=== PATIENT | female | born 1940 | race Caucasian/White ===

== ENCOUNTER → 2018-08-01 15:08 | Outpatient (CLI) | payer MEDICARE, OTHER, SELFPAY ==
--- NOTE | 2018-08-01 | DI.MG.S_ITS ---
BILATERAL DIGITAL SCREENING MAMMOGRAM 3D/2D WITH CAD WITH AUGMENTATION: 08/01/2018 CLINICAL: Routine screening. Family history of breast cancer. Comparison is made to exams dated: 04/16/2016 mammogram, 03/14/2015 mammogram, and 11/15/2013 mammogram - [facility]. There are scattered fibroglandular elements in both breasts. Current study was also evaluated with a Computer Aided Detection (CAD) system. Bilateral breast implants are stable. There are benign vascular calcifications in the left breast. Right upper chest/breast cardiac pacemaker device obscures underlying anatomy. No significant masses, calcifications, or other findings are seen in either breast. There has been no significant interval change. IMPRESSION: There is no mammographic evidence of malignancy. A 1 year screening mammogram is recommended. This exam was interpreted at Station ID: [id number]. NOTE: For mammograms, a report in lay terms will be sent to the patient. Approximately 15% of breast malignancies will not be visualized mammographically. In the management of a palpable breast mass, a negative mammogram must not discourage biopsy of a clinically suspicious lesion. Electronically Signed By: Jesse Watkins M.D. ecl/:08/01/2018 20:03:37 letter sent: Normal Exam ACR BI-RADS Category 2: Benign Finding(s) 3342F
== END ==
PROVIDERS: PCP Family Medicine; Visit Provider Family Medicine
DX: Z12.31 Encounter for screening mammogram for malignant neoplasm of breast (principal); Z80.3 Family history of malignant neoplasm of breast
CPT/HCPCS: 77063; 77067

== ENCOUNTER → 2019-07-07 11:38 | Outpatient (CLI) | payer MEDICARE, OTHER, SELFPAY ==
[2019-07-07 12:21] LABS: Add Manual Diff / Slide Review NO; Basophils Absolute Auto 0 /uL (0-100); Basophils Percent Auto 0.7 % (0-2); Eosinophils Absolute Auto 200 /uL (0-450); Hematocrit 43.9 % (36-46); Hemoglobin 14.7 g/dL (12.0-16.0); Lymphocytes Absolute Auto 1200 /uL (1100-4500); Lymphocytes Percent Auto 21.6 % (25-40); Mean Corpuscular HGB Conc 33.6 % (30-36); Mean Corpuscular Hemoglobin 31.6 PG (26-34); Mean Corpuscular Volume 94.1 fL (80-100); Monocytes Absolute Auto 600 /uL (0-900); Neutrophils Absolute Auto 3500 /uL (1500-7000); Neutrophils Percent Auto 63.7 % (50-75); Platelet Count 252 X10^3/uL (150-400); Red Blood Cell Count 4.66 X10^6/uL (4.0-5.2); Red Cell Distribution Width 14.9 % (11.6-14.8); White Blood Cell Count 5.6 X10^3/uL (4.5-11.0)
[2019-07-07 12:44] LABS: Alanine Aminotransferase 21 IU/L (<35); Albumin 4.4 g/dL (3.5-5.0); Albumin Globulin Ratio 1.3 (1.0-2.8); Alkaline Phosphatase 119 U/L (38-126); Aspartate Aminotransferase 32 IU/L (14-36); BUN Creatinine Ratio 26.7 (6-22); Bilirubin Total 0.8 mg/dL (0.2-1.3); Blood Urea Nitrogen 32 mg/dL (7-17); Calcium 9.6 mg/dL (8.4-10.2); Carbon Dioxide 28 mmol/L (22-32); Chloride 102 mmol/L (98-107); Cholesterol 167 mg/dL (140-199); Estimated Glomerular Filt Rate 43.4 mL/min (>60); Globulin 3.4 g/dL (1.7-4.1); Glucose 83 mg/dL (80-110); HDL Cholesterol 56 mg/dL (40-60); HEMOLYSIS < 15 (0-50); LDL Cholesterol Calculated 92 mg/dL (<100); Potassium 4.8 mmol/L (3.4-5.1); Sodium 140 mmol/L (137-145); Total Protein 7.8 g/dL (6.3-8.2); Triglycerides 97 mg/dL (35-150)
[2019-07-07 13:08] LABS: TSH w/ Reflex to FT4 2.77 uIU/mL (0.47-4.68)
== END ==
PROVIDERS: PCP Family Medicine; Visit Provider Physician Assistant Medical
DX: E78.00 Pure hypercholesterolemia, unspecified (principal); I48.0 Paroxysmal atrial fibrillation
CPT/HCPCS: 36415; 80053; 80061; 84443; 85025

== ENCOUNTER → 2019-10-23 09:06 | Outpatient (CLI) | payer MEDICARE, OTHER, SELFPAY ==
--- NOTE | 2019-10-23 | DI.MG.S_ITS ---
BILATERAL DIGITAL SCREENING MAMMOGRAM 3D/2D WITH CAD WITH AUGMENTATION: 10/23/2019 CLINICAL: Patient presents for routine screening. S/P bilateral augmentation. Family history of breast cancer. Comparison is made to exams dated: 08/01/2018 mammogram, 04/16/2016 mammogram, and 03/14/2015 mammogram - [facility]. There are scattered fibroglandular elements in both breasts. Current study was also evaluated with a Computer Aided Detection (CAD) system. Bilateral breast implants are stable. There are benign vascular calcifications in the left breast. No significant masses, calcifications, or other findings are seen in either breast. There has been no significant interval change. IMPRESSION: There is no mammographic evidence of malignancy. A 1 year screening mammogram is recommended. This exam was interpreted at Station ID: [id number]. NOTE: For mammograms, a report in lay terms will be sent to the patient. Approximately 15% of breast malignancies will not be visualized mammographically. In the management of a palpable breast mass, a negative mammogram must not discourage biopsy of a clinically suspicious lesion. Electronically Signed By: Ana damico/wanda:10/23/2019 10:13:02 letter sent: Normal Exam ACR BI-RADS Category 2: Benign Finding(s) 3342F
== END ==
PROVIDERS: PCP Family Medicine; Referring Provider Family Medicine; Visit Provider Family Medicine
DX: Z12.31 Encounter for screening mammogram for malignant neoplasm of breast (principal); Z80.3 Family history of malignant neoplasm of breast; Z98.82 Breast implant status
CPT/HCPCS: 77063; 77067

== ENCOUNTER → 2020-04-02 07:41 | Outpatient (CLI) | payer MEDICARE, OTHER, SELFPAY ==
--- NOTE | 2020-04-02 | DI.US.S_ITS ---
PROCEDURE: US RENAL COMPLETE INDICATIONS: BENIGN LIPOMATOUS NEOPLASM TECHNIQUE: Real-time scanning was performed of the kidneys and bladder, with image documentation. COMPARISON: [facility], CT, CT ABDOMEN PELVIS WITH CONTRAST, 07/13/2019, 10:59. FINDINGS: Review of the prior CT scan 07/13/19 shows a predominantly fatty mass in apposition to and likely arising from the inferior lateral cortex of the left kidney. At the maximal axial caliber this structure measures up to 2.5 x 2.4 cm and at the maximal craniocaudad length it is 4.2 cm. At its superior border there appears to be a soft tissue component that is small and not associated with vascularity that is perceptible including pseudoaneurysm formation. Rather, non-specific mild increased radiodensity at its confluence with the renal capsular border is noted. Kidneys: Kidneys are normal in size. Right kidney measures 9.0 cm long; left kidney measures 9.7 cm long. Right renal cortical thickness is 1.1, cm; left renal cortical thickness is 1.2 cm. Renal cortical echotexture is normal. No hydronephrosis or nephrolithiasis. No suspicious malignant-appearing solid mass lesions are found. Note is made of a 6 x 7 x 10 mm hyperechoic structure within the lateral inferior left renal cortex, possibly a small angiomyolipoma. A discrete mass lesion or pseudoaneurysm is not found related to the left kidney cortical border at the inferior half of the renal cortical region, and a structure that is clearly identifiable separate from the adjacent retroperitoneal fat in this area is not seen. However, there is a curvilinear echogenic finding of retroperitoneal fat that is slightly more homogeneous in its sonographic appearance, which would not be appreciated without benefit of reference to the CT scan from June of 2019. Miscellaneous: No free pelvic fluid. 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 The structure seen by CT scanning is predominantly fatty, with only a small degree of marginal soft tissue component and no suspicion of pseudoaneurysm within. This structure may represent an extra adrenal myelolipoma, predominately fatty. It also could represent an exophytic angiomyolipoma but with very low vascularity. The likelihood of this representing a retroperitoneal liposarcoma is considered very low by appearance but remains a possibility given the absence of comparison earlier CT scanning or MR scanning through that area. Therefore, a follow-up CT scan is recommended in 6 months to confirm stability of appearance over time. Benign etiology is presumed but follow-up is definitely recommended in 6 months. Dictated by: Lopez Holt M.D. on 04/03/2020 at 15:16 Approved by: Lopez Holt M.D. on 04/03/2020 at 15:32
== END ==
PROVIDERS: PCP Family Medicine; Referring Provider Family Medicine; Visit Provider Urology
DX: D17.71 Benign lipomatous neoplasm of kidney (principal)
CPT/HCPCS: 76770

== ENCOUNTER 2020-04-22 11:21 | Emergency (ER) | payer MEDICARE, OTHER, SELFPAY ==
[2020-04-22] VITALS (8 sets, daily range): BP systolic 146–168; BP diastolic 74–82; PULSE 59–60; RESP 15–24; TEMP 36.7; O2SAT 96–100; BMI 21.9
--- NOTE | 2020-04-22 11:54 | DI.CT.S_ITS ---
PROCEDURE: CT HEAD/BRAIN WO CON INDICATIONS: fall, on coumadin TECHNIQUE: Noncontrast 4.5 mm thick angled axial sections acquired from the foramen magnum to the vertex, with coronal and sagittal reformats. For radiation dose reduction, the following was used: automated exposure control, adjustment of mA and/or kV according to patient size. COMPARISON: [facility], CT, HEAD WITHOUT CONTRAST, 12/24/2012, 14:38. [facility], CT, HEAD WITHOUT CONTRAST, 06/29/2016, 9:36. [facility], CT, HEAD WITHOUT CONTRAST, 11/18/2016, 10:01. FINDINGS: Image quality: Excellent. CSF spaces: Basal cisterns are patent. No extra-axial fluid collections. The ventricles are symmetric in size and shape. Brain: No intracranial bleeds or masses. There is cerebral volume loss for age, with resultant ventricular and sulcal prominence. There are periventricular and deep white matter chronic small vessel ischemic changes. There is intracranial internal carotid artery atherosclerosis. Skull and face: Calvarium and visualized facial bones appear intact, without suspicious lesions. Sinuses: Visualized sinuses and mastoids are clear. IMPRESSION: No acute intracranial hemorrhage is seen. No acute intracranial process is seen. Note is made of age-appropriate brain parenchymal volume loss and chronic small vessel ischemic changes. Dictated by: Jac Joya M.D. on 04/22/2020 at 12:01 Approved by: Jac Joya M.D. on 04/22/2020 at 12:02
[2020-04-22] MEDS: LIDOCAINE/PRILOCAINE 5 GM TOP (12:12)
[2020-04-22 12:13] LABS: Add Manual Diff / Slide Review NO; Basophils Absolute Auto 0 /uL (0-100); Basophils Percent Auto 0.6 % (0-2); Eosinophils Absolute Auto 100 /uL (0-450); Eosinophils Percent Auto 1.5 % (2-4); Hematocrit 43.3 % (36-46); Hemoglobin 14.5 g/dL (12.0-16.0); Lymphocytes Absolute Auto 1100 /uL (1100-4500); Lymphocytes Percent Auto 19.1 % (25-40); Mean Corpuscular HGB Conc 33.5 % (30-36); Mean Corpuscular Hemoglobin 31.4 PG (26-34); Mean Corpuscular Volume 93.7 fL (80-100); Monocytes Absolute Auto 500 /uL (0-900); Monocytes Percent Auto 9.6 % (3-14); Neutrophils Absolute Auto 3900 /uL (1500-7000); Neutrophils Percent Auto 69.2 % (50-75); Platelet Count 211 X10^3/uL (150-400); Red Blood Cell Count 4.62 X10^6/uL (4.0-5.2); Red Cell Distribution Width 14.7 % (11.6-14.8); White Blood Cell Count 5.6 X10^3/uL (4.5-11.0)
[2020-04-22 12:25] LABS: Alanine Aminotransferase 18 IU/L (<35); Albumin 4.1 g/dL (3.5-5.0); Albumin Globulin Ratio 1.3 (1.0-2.8); Alkaline Phosphatase 78 U/L (38-126); Aspartate Aminotransferase 26 IU/L (14-36); BUN Creatinine Ratio 18.1 (6-22); Bilirubin Total 0.7 mg/dL (0.2-1.3); Blood Urea Nitrogen 23 mg/dL (7-17); Calcium 9.4 mg/dL (8.4-10.2); Carbon Dioxide 31 mmol/L (22-32); Chloride 103 mmol/L (98-107); Estimated Glomerular Filt Rate 40.6 mL/min (>60); Globulin 3.1 g/dL (1.7-4.1); Glucose 103 mg/dL (80-110); HEMOLYSIS < 15 (0-50); Potassium 4.5 mmol/L (3.4-5.1); Sodium 137 mmol/L (137-145); Total Protein 7.2 g/dL (6.3-8.2)
[2020-04-22 12:37] LABS: Troponin I < 0.012 ng/mL (0.01-0.034)
--- NOTE | 2020-04-22 12:42 | ED.DIZZY ---
HPI - Dizziness General Chief Complaint: Dizziness Stated Complaint: dizzy,fell in shower Time Seen by Provider: 04/22/20 11:53 Source: patient Mode of arrival: Ambulatory Limitations: no limitations History of Present Illness HPI Narrative: 79-year-old woman with a history of atrial fibrillation for which she takes Coumadin, intermittent episodes of weakness was in her shower this morning and became weak and slumped to the floor of the shower. She very specifically did not lose consciousness, have chest pains, dyspnea palpitations, vomiting or diarrhea. On the way down she did hit her head on the edge of the shower. She notes that she has had similar episodes in her shower. She and her were talking about options opportunities for retro fitting her her shower with seat and handles for improved safety. Related Data Previous Rx's Medication Instructions Recorded atorvastatin [Lipitor] 20 mg PO HS #30 06/30/16 warfarin [Coumadin] 7.5 mg PO 1700 #30 06/30/16 Allergies Allergy/AdvReac Type Severity Reaction Status Date / Time oxycodone [OXYCODONE] AdvReac Severe FAINTED Verified 04/22/20 11:29 Review of Systems Review of Systems Narrative: Pertinent positive and negative findings as per HPI Remainder of review of systems is otherwise unremarkable for Constitutional: Fevers, chills, weakness ENT: No sore throat, neck pain, ear pain CV: Chest pain, palpitations, dyspnea on exertion Respiratory: Cough, wheeze, dyspnea GI: Nausea, vomiting, diarrhea, change in bowel habits, black or bloody stools : Dysuria, hematuria, flank pain Patient History Medical History Anticoagulated on Coumadin (Acute) Atrial fibrillation (Acute) Syncope (Inactive) TIA (transient ischemic attack) (Inactive) Social History Smoking Status: Unknown if ever smoked Smoking Status: Unknown if ever smoked alcohol intake frequency: a few times a week Substance Use Type: does not use Exam Narrative Exam Narrative: General: Healthy appearing, in no acute distress. Able to give a complete and coherent history. Well-nourished well-developed HEENT: Moist mucous membranes, normal sclera with reactive pupils, 1 cm laceration to the parietal portion right side of her head Neck: No JVD, supple Respiratory: Lungs are clear to auscultation, no wheezing no rales no rhonchi. Full and symmetrical air movement Cardiac: Regular rate and rhythm, 3/6 murmur no bruits Abdomen: Soft nontender good bowel tones, no flank pain Skin: Warm and dry, healing zoster rash in a right-sided L2 distribution Neurologic: Grossly neurologically intact with no obvious asymmetries or abnormalities Extremities: Abrasion to dorsal aspect of the left forearm and small abrasion to right 4th finger, well perfused Psych: Cooperative, appropriate insight and affect Initial Vital Signs Initial Vital Signs: Vital Signs Temperature 98.0 F 04/22/20 11:25 Pulse Rate 60 04/22/20 11:25 Respiratory Rate 21 04/22/20 11:25 Blood Pressure 146/82 H 04/22/20 11:25 Pulse Oximetry 98 04/22/20 11:25 Procedures Laceration Repair Head repair: Site: scalp Side (If applicable): right Size (cm): 2 Description: linear Depth: simple, single layer Local Anesthetic: lidocaine 1% (Topical) Pre-repair: wound explored Skin layer closed with: iron Number of sutures: 2 Course Orders Ordered: ED Orders 04/22/20 11:54 CT head/brain wo con Stat 04/22/20 11:55 EKG-12 Lead Stat 04/22/20 12:05 Complete Blood Count AUTO DIFF Stat Comprehensive Metabolic Panel Stat Troponin I Stat Discontinued Medications Lidocaine/Prilocaine (Lidocaine-Prilocaine Cream) 5 gm TOP NOW ONE Stop: 04/22/20 11:57 Last Admin: 04/22/20 12:12 Dose: 5 gm Documented by: TRICE Vital Signs Vital signs: Vital Signs - 8 hr 04/22/20 11:25 04/22/20 11:27 04/22/20 11:30 Temperature 98.0 F Pulse Rate 60 60 59 L Respiratory Rate 21 24 23 Blood Pressure 146/82 H 146/82 H 168/80 H Pulse Oximetry 98 96 100 04/22/20 12:00 04/22/20 12:36 04/22/20 13:00 Temperature Pulse Rate 60 60 Respiratory Rate 18 18 Blood Pressure 155/74 H Pulse Oximetry 98 99 97 04/22/20 13:30 04/22/20 13:47 Temperature Pulse Rate 60 60 Respiratory Rate 15 23 Blood Pressure 164/78 H Pulse Oximetry 97 99 MDM - Dizziness Lab Data Result diagrams: 04/22/20 12:05 04/22/20 12:05 Labs: Lab Results 04/22/20 04/22/20 Range/Units 12:05 12:05 WBC 5.6 (4.5-11.0) X10^3/uL RBC 4.62 (4.0-5.2) X10^6/uL Hgb 14.5 (12.0-16.0) g/dL Hct 43.3 (36-46) % MCV 93.7 (80-100) fL MCH 31.4 (26-34) PG MCHC 33.5 (30-36) % RDW 14.7 (11.6-14.8) % Plt Count 211 (150-400) X10^3/uL Neut % (Auto) 69.2 (50-75) % Lymph % (Auto) 19.1 L (25-40) % [place] % (Auto) 9.6 (3-14) % Eos % (Auto) 1.5 L (2-4) % Baso % (Auto) 0.6 (0-2) % Neut # (Auto) 3900 (1744-1325) /uL Lymph # (Auto) 1100 (2224-8906) /uL [place] # (Auto) 500 (0-900) /uL Eos # (Auto) 100 (0-450) /uL Baso # (Auto) 0 (0-100) /uL Sodium 137 (137-145) mmol/L Potassium 4.5 (3.4-5.1) mmol/L Chloride 103 (98-107) mmol/L Carbon Dioxide 31 (22-32) mmol/L BUN 23 H (7-17) mg/dL Creatinine 1.27 H (0.52-1.04) mg/dL Estimated GFR 40.6 L (>60) mL/min BUN/Creatinine Ratio 18.1 (6-22) Glucose 103 (80-110) mg/dL Calcium 9.4 (8.4-10.2) mg/dL Total Bilirubin 0.7 (0.2-1.3) mg/dL AST 26 (14-36) IU/L ALT 18 (<35) IU/L Alkaline Phosphatase 78 (38-126) U/L Troponin I < 0.012 (0.01-0.034) ng/mL Total Protein 7.2 (6.3-8.2) g/dL Albumin 4.1 (3.5-5.0) g/dL Globulin 3.1 (1.7-4.1) g/dL Albumin/Globulin Ratio 1.3 (1.0-2.8) Discharge Plan Departure Patient Disposition: Home Clinical Impression: Fall Qualifiers: Encounter type: initial encounter Qualified Code(s): W19.XXXA - Unspecified fall, initial encounter Laceration of scalp Qualifiers: Encounter type: initial encounter Qualified Code(s): S01.01XA - Laceration without foreign body of scalp, initial encounter Instructions: DI for Laceration Repair of the Scalp Activity Restrictions/Additional Instructions: Thank you for coming in today Your labs and your CT scan are very reassuring. I used 2 iron to reapproximate the laceration to the right side of your scalp. You will need to have these taken out on or about May 02 or Please consider getting some hand holds and a shower chair available to use in that shower. I wish you the best Prescriptions: No Action atorvastatin [Lipitor] 20 MG tablet 20 mg PO HS Qty: 30 RF: 0 warfarin [Coumadin] 7.5 MG tablet 7.5 mg PO 1700 Qty: 30 RF: 0 Referrals: Danica Rich MD [Primary Care Provider] -
== END 2020-04-22 14:18 | disposition home or self-care (01) ==
PROVIDERS: Emergency Provider Emergency Medicine; PCP Family Medicine
DX: S01.01XA Laceration without foreign body of scalp, initial encounter (principal); W19.XXXA Unspecified fall, initial encounter; I48.91 Unspecified atrial fibrillation; Z79.01 Long term (current) use of anticoagulants
CPT/HCPCS: 12001; 36415; 70450; 80053; 84484; 85025; 93005; 99284

== ENCOUNTER → 2020-11-01 10:26 | Outpatient (CLI) | payer MEDICARE, OTHER, SELFPAY ==
--- NOTE | 2020-11-01 | DI.MG.S_ITS ---
BILATERAL DIGITAL SCREENING MAMMOGRAM 3D/2D WITH CAD WITH AUGMENTATION: 11/01/2020 CLINICAL: Routine screening. Family history of breast cancer. Comparison is made to exams dated: 10/23/2019 mammogram, 08/01/2018 mammogram, and 04/16/2016 mammogram - [facility]. There are scattered fibroglandular elements in both breasts. Current study was also evaluated with a Computer Aided Detection (CAD) system. There is a possible new 0.5 cm oval asymmetry in the left breast posterior depth inferior region seen on the mediolateral oblique view only immediately anterior to the implant. This is not seen on the implant displaced view. No other significant masses, calcifications, or other findings are seen in either breast. IMPRESSION: INCOMPLETE: NEEDS ADDITIONAL IMAGING EVALUATION The possible new 0.5 cm oval asymmetry in the left breast is indeterminate. Additional views with possible ultrasound are recommended. This exam was interpreted at Station ID: [id number]. NOTE: For mammograms, a report in lay terms will be sent to the patient. Approximately 15% of breast malignancies will not be visualized mammographically. In the management of a palpable breast mass, a negative mammogram must not discourage biopsy of a clinically suspicious lesion. Electronically Signed By: Gurjit Eng M.D. aty/:11/03/2020 07:35:32 letter sent: Additional Imaging Needed ACR BI-RADS Category 0: Incomplete 3340F
== END ==
PROVIDERS: PCP Family Medicine; Referring Provider Family Medicine; Visit Provider Family Medicine
DX: Z12.31 Encounter for screening mammogram for malignant neoplasm of breast (principal); Z80.3 Family history of malignant neoplasm of breast
CPT/HCPCS: 77063; 77067

== ENCOUNTER → 2020-11-17 13:50 | Outpatient (CLI) | payer MEDICARE, OTHER, SELFPAY ==
--- NOTE | 2020-11-17 13:52 | DI.MG.S_ITS ---
UNILATERAL LEFT DIGITAL DIAGNOSTIC MAMMOGRAM 3D/2D WITH ADDITIONAL VIEWS: 11/17/2020 CLINICAL: Additional evaluation requested from prior study. Comparison is made to exams dated: 11/01/2020 mammogram, 10/23/2019 mammogram, and 08/01/2018 mammogram - [facility]. There are scattered fibroglandular elements in left breast. The possible 0.5 cm oval asymmetry in the left breast posterior depth inferior region seen on the mediolateral oblique view only is not reproduced and presumably represented superimposed breast tissue. This is not seen in additional views. No other significant masses or calcifications are seen in the breast. IMPRESSION: INCOMPLETE: NEEDS ADDITIONAL IMAGING EVALUATION An ultrasound is recommended to confirm the no longer seen oval asymmetry in the left breast posterior depth inferior region seen on the mediolateral oblique view only. This exam was interpreted at Station ID: [id number]. NOTE: For mammograms, a report in lay terms will be sent to the patient. Approximately 15% of breast malignancies will not be visualized mammographically. In the management of a palpable breast mass, a negative mammogram must not discourage biopsy of a clinically suspicious lesion. Electronically Signed By: Jaswinder Stephenson acr/:11/19/2020 15:28:02 letter sent: Additional Imaging Needed ACR BI-RADS Category 0: Incomplete 3340F
--- NOTE | 2020-11-17 13:53 | DI.US.S_ITS ---
ULTRASOUND OF LEFT BREAST: 11/17/2020 CLINICAL: Patient returns today to evaluate a focal asymmetry in the left breast. Comparison is made to exams dated: 11/17/2020 mammogram, 11/01/2020 mammogram, 10/23/2019 mammogram, 08/01/2018 mammogram, 04/16/2016 mammogram, and 03/14/2015 mammogram - [facility]. Color flow and Doppler ultrasound of the left breast were performed. IMPRESSION: NEGATIVE There is no sonographic evidence of malignancy. There is no abnormality seen in the left breast to correspond with the mammographic density in the lower aspect, however, clinical followup is recommended. Return to annual mammogram screening schedule is recommended. This exam was interpreted at Station ID: [id number]. Electronically Signed By: Jaswinder Stephenson acr/:11/19/2020 15:28:51 letter sent: Clinical Evaluation Ultrasound BI-RADS: 1 Negative
== END ==
PROVIDERS: PCP Family Medicine; Referring Provider Family Medicine; Visit Provider Family Medicine
DX: R92.8 Other abnormal and inconclusive findings on diagnostic imaging of breast (principal)
CPT/HCPCS: 76642; 77065; G0279

== ENCOUNTER → 2021-06-18 11:38 | Outpatient (CLI) | payer MEDICARE, OTHER, SELFPAY ==
[2021-06-18 13:15] LABS: BUN Creatinine Ratio 24.1 (6-22); Blood Urea Nitrogen 26 mg/dL (7-17); Estimated Glomerular Filt Rate 48.8 mL/min (>60)
== END ==
PROVIDERS: PCP Family Medicine; Referring Provider Urology; Visit Provider Urology
DX: D17.9 Benign lipomatous neoplasm, unspecified (principal)
CPT/HCPCS: 36415; 82565; 84520

== ENCOUNTER → 2021-06-18 11:44 | Outpatient (CLI) | payer MEDICARE, OTHER, SELFPAY ==
[2021-06-18 13:00] LABS: Alanine Aminotransferase 25 IU/L (<35); Albumin 4.1 g/dL (3.5-5.0); Albumin Globulin Ratio 1.4 (1.0-2.8); Alkaline Phosphatase 84 U/L (38-126); Aspartate Aminotransferase 29 IU/L (14-36); BUN Creatinine Ratio 23.4 (6-22); Bilirubin Total 0.5 mg/dL (0.2-1.3); Blood Urea Nitrogen 26 mg/dL (7-17); Calcium 9.5 mg/dL (8.4-10.2); Carbon Dioxide 28 mmol/L (22-32); Chloride 104 mmol/L (98-107); Estimated Glomerular Filt Rate 47.3 mL/min (>60); Glucose 82 mg/dL (80-110); HEMOLYSIS < 15 (0-50); Potassium 5.1 mmol/L (3.4-5.1); Sodium 138 mmol/L (137-145); Total Protein 7.1 g/dL (6.3-8.2)
== END ==
PROVIDERS: PCP Family Medicine; Referring Provider Internal Medicine Cardiovascular Disease; Visit Provider Internal Medicine Cardiovascular Disease
DX: I48.0 Paroxysmal atrial fibrillation (principal); D17.9 Benign lipomatous neoplasm, unspecified
CPT/HCPCS: 36415; 80053; 82565; 84520

== ENCOUNTER → 2021-06-22 11:37 | Outpatient (CLI) | payer MEDICARE, OTHER, SELFPAY ==
--- NOTE | 2021-06-22 11:42 | DI.CT.S_ITS ---
PROCEDURE: CT ABDOMEN WO/W CON INDICATIONS: Benign lipomatous neoplasm, unspecified TECHNIQUE: Optional 5 mm thick noncontrast images acquired from the diaphragm to the iliac crests. After the administration of intravenous contrast, 5 mm thick images again acquired from the diaphragm to the iliac crests in the arterial and urographic phases. 5 mm thick coronal and sagittal reformats were then acquired. For radiation dose reduction, the following was used: automated exposure control, adjustment of mA and/or kV according to patient size. COMPARISON: July 13, 2019. FINDINGS: Image quality: Excellent. Lower thorax: Lung bases are clear. Heart size is normal. A fat containing left diaphragmatic hernia with defect measuring approximately 1.8 cm Genitourinary: Symmetric enhancement of the kidneys without evidence of obstructive uropathy. No substantial hydronephrosis or nephrolithiasis. A 1.5 cm hypoattenuating lesion is seen in the right interpolar region, most consistent with a cyst. Two left cortical fat attenuation lesions are seen measuring up to 1.5 cm, compatible with lipomas or angiomyolipomas. An additional exophytic left lower pole fat attenuation lesion is again seen, measuring 2.1 x 3.6 cm, most consistent with an angiomyolipoma. Other solid organs: Liver is normal in size and enhancement. Gallbladder demonstrates no wall thickening or calcified gallstones. Biliary system is non dilated. Pancreas enhances normally. Spleen is normal in size and enhancement. No adrenal nodules. Peritoneum and bowel: Unenhanced bowel loops are normal in wall thickness and caliber. No free fluid or air. Nodes and vessels: No retroperitoneal or mesenteric adenopathy by size criteria. Aorta and inferior vena cava are normal in caliber. Bones: No suspicious bony lesions. Increased sclerosis of the osseous structures, which is nonspecific but can be seen in the setting of renal osteodystrophy. No vertebral body compression fractures. Miscellaneous: No ventral hernias. IMPRESSION: 1. No acute intra-abdominal abnormality. 2. Three fat containing lesions in the left kidney as detailed above, which may reflect lipomas and or angiomyolipomas. Dictated by: Duy Centeno M.D. on 06/23/2021 at 8:34 Approved by: Duy Centeno M.D. on 06/23/2021 at 8:47
== END ==
PROVIDERS: PCP Family Medicine; Referring Provider Urology; Visit Provider Urology
DX: D17.9 Benign lipomatous neoplasm, unspecified (principal); N28.9 Disorder of kidney and ureter, unspecified
CPT/HCPCS: 74170

== ENCOUNTER → 2021-11-24 10:36 | Outpatient (CLI) | payer MEDICARE, OTHER, SELFPAY ==
--- NOTE | 2021-11-24 | DI.MG.S_ITS ---
BILATERAL DIGITAL SCREENING MAMMOGRAM 3D/2D WITH CAD WITH AUGMENTATION: 11/24/2021 CLINICAL: Routine screening. Family history of breast cancer. Comparison is made to exams dated: 11/17/2020 mammogram, 11/01/2020 mammogram, 10/23/2019 mammogram, 08/01/2018 mammogram, and 04/16/2016 mammogram - [facility]. There are scattered fibroglandular elements in both breasts. Current study was also evaluated with a Computer Aided Detection (CAD) system. Bilateral breast implants are stable and intact. No significant masses, calcifications, or other findings are seen in either breast. There has been no significant interval change. IMPRESSION: NEGATIVE There is no mammographic evidence of malignancy. A 1 year screening mammogram is recommended. This exam was interpreted at Station ID: [id number]. NOTE: For mammograms, a report in lay terms will be sent to the patient. Approximately 15% of breast malignancies will not be visualized mammographically. In the management of a palpable breast mass, a negative mammogram must not discourage biopsy of a clinically suspicious lesion. Electronically Signed By: Logan laird/wanda:11/24/2021 12:55:14 letter sent: Normal Exam ACR BI-RADS Category 1: Negative 3341F
== END ==
PROVIDERS: PCP Family Medicine; Referring Provider Family Medicine; Visit Provider Family Medicine
DX: Z12.31 Encounter for screening mammogram for malignant neoplasm of breast (principal); Z80.3 Family history of malignant neoplasm of breast
CPT/HCPCS: 77063; 77067

== ENCOUNTER → 2023-07-05 13:02 | Outpatient (CLI) | payer MEDICARE, OTHER, SELFPAY ==
--- NOTE | 2023-07-05 | DI.MG.S_ITS ---
BILATERAL DIGITAL SCREENING MAMMOGRAM 3D/2D WITH CAD WITH AUGMENTATION: 07/05/2023 CLINICAL: Routine screening. Family history of breast cancer. Comparison is made to exams dated: 11/24/2021 mammogram, 11/17/2020 mammogram, 11/01/2020 mammogram, and 10/23/2019 mammogram - [facility]. There are scattered areas of fibroglandular density in both breasts (category b / 25%-50% glandular tissue). Current study was also evaluated with a Computer Aided Detection (CAD) system. Bilateral breast implants are stable and intact. There are benign vascular calcifications in the left breast. No significant masses, calcifications, or other findings are seen in either breast. There has been no significant interval change. IMPRESSION: BENIGN There is no mammographic evidence of malignancy. A 1 year screening mammogram is recommended. Based on the Tyrer Cuzick model (a risk assessment model) the patient's lifetime risk is 0.6% and her 10 year risk is 0.0%. According to the ACR, ACS, and NCCN guidelines, an annual breast MRI exam along with mammogram is recommended if the patient's lifetime risk is 20% or greater. This exam was interpreted at Station ID: [id number]. NOTE: For mammograms, a report in lay terms will be sent to the patient. Approximately 15% of breast malignancies will not be visualized mammographically. In the management of a palpable breast mass, a negative mammogram must not discourage biopsy of a clinically suspicious lesion. Electronically Signed By: Logan laird/wanda:07/05/2023 15:11:49 letter sent: Normal Exam ACR BI-RADS Category 2: Benign Finding(s) 3342F
== END ==
PROVIDERS: PCP Family Medicine; Referring Provider Family Medicine; Visit Provider Family Medicine
DX: Z12.31 Encounter for screening mammogram for malignant neoplasm of breast (principal); Z80.3 Family history of malignant neoplasm of breast
CPT/HCPCS: 77063; 77067